=== PATIENT | female | born 1970 | race Caucasian/White ===

== ENCOUNTER 2023-12-13 06:02 | Day surgery (SDC) | payer OTHER, SELFPAY ==
[2023-12-13] VITALS (10 sets, daily range): BP systolic 92–107; BP diastolic 50–74; PULSE 41–67; RESP 16; TEMP 36.2–37.2; O2SAT 100; BMI 24.1
--- NOTE | 2023-12-13 06:17 | EKG12_ITS ---
Test Reason : PREOP Blood Pressure : / mmHG Vent. Rate : 054 BPM Atrial Rate : 054 BPM P-R Int : 142 ms QRS Dur : 078 ms QT Int : 434 ms P-R-T Axes : 075 086 046 degrees QTc Int : 411 ms Sinus bradycardia Otherwise normal ECG No previous ECGs available Confirmed by Bebo Miller ([id number]), video editor GOPAL ANGELES ([id number]) on 12/18/2023 6:11:02 AM Referred By: Marj Rivera Confirmed By:Bebo Miller
[2023-12-13] MEDS: Lactated Ringers 1,000 ML 15 ML IV (06:57)
[2023-12-13 07:16] LABS: Internal QC Validated? YES +Cl - CLEAR BKGD
[2023-12-13 07:17] LABS: Pregnancy, Serum, hCG Quali. NEGATIVE Negative
[2023-12-13 07:19] LABS: Anion Gap 6 (5-15); BUN 18 mg/dL (7-18); BUN/Creat Ratio 21.9 RATIO (10-20); Calcium,Total 8.8 mg/dL (8.5-10.1); Chloride 110 mmol/L (98-107); Creatinine, Serum 0.82 mg/dL (0.55-1.02); EST Glomerular Filtration Rate 78 mL/min (>60); Est Glom Filt Rate - Afr Amer 94 mL/min (>60); Estimated Creatinine Clearance 90.72 ml/min; Glucose 88 mg/dL (74-106); Potassium 3.7 mmol/L (3.5-5.1); Sodium Level 141 mmol/L (136-145)
--- NOTE | 2023-12-13 07:28 | PRE.ANES_ITS ---
ASA Classification* ASA Classification ASA Classification: 2 Assessment & Plan Anesthesia* Anesthesia Assessment Anesthesia Assessment: Discussed sedation and/or anesthesia options, risks, benefits, and alternatives with patient/parents/legal guardian/POA. Questions invited. The patient/parents/legal guardian/POA seems to understand and agrees to proceed with anesthesia plan. Reviewed the physical assessment, medical history, allergy history and patient home medications list prior to surgery/procedure/anesthetic and documented any changes. Performed airway and anesthesia risk assessments. 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 When Was Last Pacemaker Check QUESTION #4 FULL TEXT: You/Your Family Experience fever (hyperthermia) with Anesthesia Last Oral Intake Last Oral intake: Last Oral Intake NPO since 18:30 12/13/23 06:47 Meds taken in AM with sips of water? Meds patient instructed to take am of surgery PONV PONV - fire investigation manager: PONV - fire investigation manager Female Yes 11/28/23 09:55 HX of Motion Sickness Yes 11/28/23 09:55 HX of N/V After Surgery Yes 11/28/23 09:55 Non-Smoker Yes 11/28/23 09:55 Duration of Surgery greater No 11/28/23 09:55 than 60 minutes Number of Risk Factors 4 11/28/23 09:55 PONV Score Severe Risk 11/28/23 09:55 Height & Weight Height & Weight: Anesthesia: Height & Weight Height 5 ft 11 in 12/13/23 06:47 Weight: 78.6 kg 12/13/23 06:47 Body Mass Index (BMI) 24.1 12/13/23 06:47 Respiratory Assessment Respiratory Assessment - fire investigation manager: Respiratory Tract Infection Hx - fire investigation manager Hx Respiratory Tract Infection No 11/28/23 09:55 STOP Sleep Apnea STOP Sleep Apnea - fire investigation manager: STOP Sleep Apnea - fire investigation manager Hx Hypertension No: HYPOTENSION 11/28/23 09:55 Hx Sleep Apnea No 11/28/23 09:55 CPAP BIPAP Do you snore loudly (louder Yes 11/28/23 09:55 than talking or can be heard Do you often feel tired/ No 11/28/23 09:55 fatigued/ sleepy during daytime? Has anyone observed you stop No 11/28/23 09:55 breathing during sleep? STOP Results Negative 11/28/23 09:55 QUESTION #5 FULL TEXT : Do you snore loudly (louder than talking or can be heard through closed doors)? 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 Specify any problems Hx of Preganancy in last 3 No 11/28/23 09:55 Months Nurse Filling Out Transfusion DSCHRIBER 11/28/23 09:55 & Questions: Date: 11/28/23 11/28/23 09:55 Time: 09:57 11/28/23 09:55 Patient unable to answer at this time (ie. confused, unrespo /Reproduction History /Reproductive History - fire investigation manager: /Reproductive Hx- fire investigation manager Hx Now No 11/28/23 09:55 Gestational Age (in weeks): EDC: Hx Hx Para Hx Section SAB No 11/28/23 09:55 Active Medications Active Medications: Current Medications Generic Name Dose Route Start Last Admin Trade Name Freq PRN Reason Stop Dose Admin Lactated Ringer's 1,000 mls @ 15 mls/hr 12/13/23 06:45 12/13/23 06:57 IV 15 mls/hr .Q48H ADDIE Administration Anesthesia Focused Assessment* Temperature: 98.9 F Pulse Rate: 53 Blood Pressure: 106/68 Respiratory Rate: 16 Pulse Ox: 100 Airway Assessment Mouth opens: >3 cm Mallampati Score: II Focused Labs Anesthesia Preop lab: CBC CHEMISTRY Potassium 3.7 mmol/L (3.5-5.1) 12/13/23 06:36 Sodium 141 mmol/L (136-145) 12/13/23 06:36 BUN 18 mg/dL (7-18) 12/13/23 06:36 Creatinine 0.82 mg/dL (0.55-1.02) 12/13/23 06:36 Glucose 88 mg/dL (74-106) 12/13/23 06:36 COAG Review of Systems (Anesthesia) ROS Narrative System reviewed and no additional complaints, except as documented. [facility] Medical History Wears contact lenses Arthritis Anemia Back pain Migraine headache Syncope Non-smoker History of pain when walking Hx of tilt table evaluation History of stress test History of irregular heartbeat Home Medications ?Medication ?Instructions ?Recorded ?Last Taken ?Type fexofenadine 60 mg tablet (Estefany 60 mg PO Q12H PRN PRN allergy 11/28/23 Unknown History Allergy) symptoms norethindrone (contraceptive) 0.35 0.35 mg PO DAILY 11/28/23 Unknown History mg tablet sumatriptan succinate 50 mg tablet 50 mg PO DAILY PRN PRN migraine 11/28/23 Unknown History headache Allergy/AdvReac Type Severity Reaction Status Date / Time adhesive tape AdvReac Intermediate Other Verified 12/13/23 06:41 Barbiturates AdvReac Intermediate Other Verified 12/13/23 06:41 Surgical History History of cardiac catheterization Hx of wisdom tooth extraction Hx of left knee surgery Social History Smoking Status: Never smoker
--- NOTE | 2023-12-13 07:29 | PCM.HP.BLA ---
History and Physical Date of Admission: 12/13/23 Pre-Op History and Physical HPI: The patient is a 53 year old female presenting for pre-operative visit. She is scheduled for laparoscopic bilateral salpingectomy, for desires salpingectomy on 12/13/23. Procedure discussed along with risks, benefits and complications. Other alternatives discussed for management. Consent form signed? Yes. PAST MEDICAL HISTORY PAST MEDICAL HISTORY Diagnosis Date ? Corneal ulcer of right eye ? Migraine with aura ? PMH - PAST MEDICAL HISTORY OF IRREGULAR HEARTBEAT PAST SURGICAL HISTORY PAST SURGICAL HISTORY Procedure Laterality Date ? ARTHROSCOPY KNEE DIAGNOSTIC W/WO SYNOVIAL BX SPX 11/2021 Left Knee ? PAST SURGICAL HISTORY OF MANY HEART TESTS? ? UNSPECIFIED ORAL SURGERY PROCEDURE, BY REPORT WISDOM TEETH REMOVED CURRENT MEDICATIONS Current Outpatient Medications Medication Sig Dispense Refill ? SUMAtriptan (IMITREX) 50 mg tablet TAKE ONE TABLET BY MOUTH AT HEADACHE ONSET, MAY REPEAT ONCE IN 2 HOURS IF NOT EFFECTIVE. ? olopatadine HCl (PATADAY OPHTHALMIC) Use in eyes once daily. ? omega-3/dha/epa/dpa/fish oil (OMEGA-3 2100 ORAL) Take by mouth once daily. ? Norethindrone, Contraceptive, 0.35 mg tablet Take 1 tablet by mouth once daily. 90 tablet 3 ? triamcinolone acetonide (NASACORT NASAL) Use in the nose. ? CALCIUM ORAL Take by mouth. ? fexofenadine (BEAN) 180 mg tablet Take 180 mg by mouth once daily. ? GLUCOSAMINE HCL/CHONDR THOMAS A NA (OSTEO BI-FLEX ORAL) Take by mouth. Move Free, Pt takes 2 tablets daily. ? MULTIVITAMIN ORAL Take by mouth. ? CRANBERRY EXTRACT (CRANBERRY ORAL) Take by mouth. ? LORATADINE ORAL Take by mouth. No current facility-administered medications for this visit. ALLERGIES: Adhesive Tape (Rosins) and Barbituates [Barbiturates] PERSONAL HISTORY: SOCIAL HISTORY Social History Tobacco Use ? Smoking status: Never Passive exposure: Never ? Smokeless tobacco: Never Vaping Use ? Vaping Use: Never used Substance Use Topics ? Alcohol use: No ? Drug use: No FAMILY HISTORY: FAMILY HISTORY FAMILY HISTORY Problem Relation Age of Onset ? Lipids Mother High Cholesterol ? Hypertension Mother ? Thyroid Mother ? Cancer Mother pituitary tumor ? Diabetes Father ? Heart Father ? Arthritis Father ? Hypertension Father ? Cervical Cancer Sister 54 ? Uterine Cancer Sister 54 ? Osteoporosis Maternal Grandmother ? Stroke Maternal Grandmother ? Diabetes Paternal Grandmother ? Arthritis Paternal Grandmother ? Breast Cancer Maternal Aunt 60 ? other (uterine cancer) Maternal Aunt 70 REVIEW OF SYMPTOMS: Negative CP, SOB, dizziness PHYSICAL EXAMINATION: VITALS: Blood pressure 124/72, pulse 68, height 180.3 cm (5' 11), weight 79.8 kg (176 lb), last menstrual period 11/14/2023, SpO2 98%. GENERAL: The patient is well nourished, well hydrated in no acute distress. , The patient is oriented to time, place, and person. NECK: full range of motion WET PREP: Not indicated IMPRESSION: 53yo that desires permanent sterilization PLAN: Laparoscopic bilateral salpingectomy Pt has been counseled on risks/benefits and alternatives of surgery including but not limited to anesthesia, bleeding, infection, injury to pelvic structures including bowel, bladder, ureters and vessels. Pt wishes to proceed with surgery at this time. Pre and post op instructions reviewed I have reviewed and updated past medical and surgical history, medications and allergies Marj Dominguez MD Office Visit on 11/30/2023
--- NOTE | 2023-12-13 07:30 | FALS_PTH ---
PATIENT: STEPHY CID LOC: [facility] [place] U#:[id number] AGE/SX: 53/F ROOM: RE12/13/[address]: Dr. Marj Rivera, MDDOB: 1970 BED: DIS: 12/13/2023 SPEC #: [id number] RECD: 12/13/23 10:06 STATUS: ANGELINA ELVIS #: [id number] KENDALL: 12/13/23 07:[address]: Marj Rivera DEPT: SURGICAL PATHOLOGY RECD BY: Kym Vargas ENTERED: 12/13/23 11:37 SP TYPE: FALL TUBES OTHR DR: Dr. Maurizio Greene MD Tissues: Fallopian tube Procedures: Surgery Specimen Level II HEADER OPERATION: Laparoscopic, salpingectomy PRE-OP DIAGNOSIS: Desires sterilization TISSUE SUBMITTED: Bilateral fallopian tubes MICROSCOPIC DIAGNOSIS Right and left fallopian tubes, bilateral salpingectomies: Two complete cross sections of right and left fallopian tubes with benign paratubal cysts. AM: 12/14/2023 MICROSCOPIC DESCRIPTION Slides are reviewed. GROSS DESCRIPTION Received in fixative is one container labeled with the patient's name and designated bilateral fallopian tubes. The specimen consists of two fallopian tubes with an average length of 8.0 cm and has an average diameter of 0.5 cm. Both fallopian tubes have normal fimbriated ends. No mass lesions are identified. [employer] Clerk sections for each fallopian tube are submitted separately in two cassettes. AM: 12/13/2023 TC:5 CPT: 15785 [id number]
[2023-12-13] MEDS: Bupivacaine 0.5% PF 10 ML VIAL (07:52)
--- NOTE | 2023-12-13 08:09 | PCM.DC ---
Discharge Instructions Diet Discharge Diet: No restrictions Activity May resume sexual activity in: 2 weeks Lifting Restrictions: 20-25 lbs Dressing / Incision Call your doctor if your incision/area has: Continuous Slow Oozing, Sudden Increased Bleeding, Increased Pain/ Swelling, Increased Redness, Foul Smelling Discharge and Swelling at the incision site Call your doctor if you observe: Fever of 101 or Higher, Inability to urinate, Inability to have a bowel movement, Using more than 1 pad per hour and Uncontrolled pain Additional Dressing/Incision Instructions:: You have skin glue over your incision sites, do not pick off. You may shower and let the soap and water run over the incision sites and dab dry. Follow Up Care Please Follow Up With: Marj Rivera MD When: 1-2 weeks post OP if you need an appointment please call [phone] Test Results: Test results from this visit will be discussed in further detail at your follow-up appointment, if applicable. Discharge Plan Admission Attending Provider: Marj Rivera Primary Care Provider: Maurizio Greene Instructions Print Language: Malawian Discharge Orders/Prescriptions Prescriptions: No Action sumatriptan succinate 50 mg tablet 50 mg PO DAILY PRN PRN (Reason: migraine headache) norethindrone (contraceptive) 0.35 mg tablet 0.35 mg PO DAILY fexofenadine [Estefany Allergy] 60 mg tablet 60 mg PO Q12H PRN PRN (Reason: allergy symptoms) Disposition Disposition (needs filled in before D/C Order can be placed): Home, Self Care
--- NOTE | 2023-12-13 08:10 | OP.PCM_ITS ---
Report of Operation Date of Procedure: 12/13/23 Pre-Operative Diagnosis: Desires sterilization Post-Operative Diagnosis: same Surgery/Procedure Performed:: Laparoscopic bilateral salpingectomy Description of Surgical Findings:: Small pedunculated fibroid on posterior aspect of uterus right ovary with small simple appearing cyst. Left ovary appears normal. Surgeon: Marj Rivera application software developer: None Type of Anesthesia: General and Local Special Medications: 0.5% marcaine Specimen's removed: bilateral fallopian tubes Estimated Blood Loss (mL): <5cc Fluids Replaced: 500 Description of Procedure: After informed consent was obtained patient was taken to the operating room she was placed in supine position she was given anesthesia. She was then placed in the [facility] stirrups and she was prepped and draped in normal sterile fashion. Bladder was drained prior to the start of procedure. At this time attention was turned to the vaginal portion where weighted speculum placed at posterior fornix vagina single-tooth tenaculum was used to gently grasp the internal the cervix. uterus was gently sounded to approximately 6 cm. Uterine manipulator was placed without difficulty. Legs then placed in parallel with the abdomen the tenaculum and the weighted speculum were removed. 2 towel clamps were placed at level of umbilicus. Marcaine was injected infraumbilical and a small incision was made. The 5 mm trocar was placed under direct visualization. CO2 gas was used to insufflate the intra-abdominal cavity. Upon inspection no gross abnormalities appreciated- the uterus tubes and ovaries appeared to be normal. At this time then the LLQ and RLQ ports were placed First Marcaine was injected and small incision was made a knife and the 5 mm trocars were placed. At this time then tubes were traced back to the fimbriated ends. Enseal was used to coagulate and ligate along mesosalpinx bilaterally until tubes removed completely. Good hemostasis was appreciated. At this time procedure was deemed complete successful. The gas was desufflated on from the intra-abdominal cavity. The trochars were removed. Skin was closed using 4-0 Monocryl in a subcutaneous fashion. Dermabond glue was placed. Instrument lap and needle counts were correct ?2. The uterine manipulator was removed. Vaginal sweep was performed it was negative. There were no complications anticipated normal postoperative course for this patient. Grafts/Implants Used: none Procedure Start Time: 07:52 Procedure Stop Time: 08:09 Complications none Admit VTE Documentation VTE Present on Admission: Yes VTE Mechan Device Prophylaxis: SCD's VTE Pharm Prophylaxis ordered?: No Reason prophylaxis not ordered:: Procedure Not Indicated
--- NOTE | 2023-12-13 08:22 | PCM.POST.ANE ---
Anesthesia: Postop Eval I Current Vital Signs Temperature: 97.2 F Pulse Rate: 67 Blood Pressure: 92/74 Respiratory Rate: 16 Pulse Ox: 100 Oxygen Delivery Method: Room Air Assessment Airway patent: Yes Spontaneous unlabored respirations: Yes Mental status: Awake and Calm nausea: No Vomiting: No Anesthesia Complication: No Fluid Hydration Crystalloid volume administer (ml): 500 Total IV fluid infused: 500 Progress Note Anesthesia document: Postop Eval 1 completed: Yes
--- NOTE | 2023-12-13 08:54 | POSTOPAN2_ITS ---
Anesthesia Postop Eval I Sum Postop Eval Completion status Anesthesia document: Postop Eval 1 completed: Yes Anesthesia Postop Eval I Summary Anesthesia Postop Eval I Summary: Anesthesia Postop Eval I: Assessment Summary Airway patent Yes 12/13/23 08:31 SCIENTIFIC ARTIST.GDOTT Spontaneous unlabored Yes 12/13/23 08:31 SCIENTIFIC ARTIST.GDOTT respirations Mental status Awake,Calm 12/13/23 08:31 SCIENTIFIC ARTIST.GDOTT nausea No 12/13/23 08:31 SCIENTIFIC ARTIST.GDOTT Vomiting No 12/13/23 08:31 SCIENTIFIC ARTIST.GDOTT Anesthesia Postop Eval I: Fluid Summary Crystalloid volume administer 500 12/13/23 08:31 SCIENTIFIC ARTIST.GDOTT (ml) Colloids volume administered ( ml) Blood Product volume administered (ml) Total IV fluid infused 500 12/13/23 08:31 SCIENTIFIC ARTIST.GDOTT Anesthesia Postop Eval I: Summary Notes Anesthesia Complication No 12/13/23 08:31 SCIENTIFIC ARTIST.GDOTT Anesthesia Complication Comment: Post-operative progress note Anesthesia: Postop Eval II Evaluation Mental status: Awake Pain Level: 0 nausea: No Vomiting: No Complications Anesthesia Complication: No
--- NOTE | 2023-12-13 08:54 | PCM.POSTANE2 ---
Anesthesia Postop Eval I Sum Postop Eval Completion status Anesthesia document: Postop Eval 1 completed: Yes Anesthesia Postop Eval I Summary Anesthesia Postop Eval I Summary: Anesthesia Postop Eval I: Assessment Summary Airway patent Yes 12/13/23 08:31 WEBMETHODS CONSULTANT.GDOTT Spontaneous unlabored Yes 12/13/23 08:31 WEBMETHODS CONSULTANT.GDOTT respirations Mental status Awake,Calm 12/13/23 08:31 WEBMETHODS CONSULTANT.GDOTT nausea No 12/13/23 08:31 WEBMETHODS CONSULTANT.GDOTT Vomiting No 12/13/23 08:31 WEBMETHODS CONSULTANT.GDOTT Anesthesia Postop Eval I: Fluid Summary Crystalloid volume administer 500 12/13/23 08:31 WEBMETHODS CONSULTANT.GDOTT (ml) Colloids volume administered ( ml) Blood Product volume administered (ml) Total IV fluid infused 500 12/13/23 08:31 WEBMETHODS CONSULTANT.GDOTT Anesthesia Postop Eval I: Summary Notes Anesthesia Complication No 12/13/23 08:31 WEBMETHODS CONSULTANT.GDOTT Anesthesia Complication Comment: Post-operative progress note Anesthesia: Postop Eval II Evaluation Mental status: Awake Pain Level: 0 nausea: No Vomiting: No Complications Anesthesia Complication: No
== END 2023-12-13 09:45 | disposition home or self-care (01) ==
LOC: SDC 06:06 → AC 06:06
PROVIDERS: Anesthesiology; PCP Family Medicine; Referring Provider Obstetrics & Gynecology; Visit Provider Obstetrics & Gynecology
PROC: (CPT 58661; principal; 2023-12-13 07:15)
DX: Z30.2 Encounter for sterilization (principal); N83.8 Other noninflammatory disorders of ovary, fallopian tube and broad ligament
CPT/HCPCS: 58661; 00840; 80048; 84703; 88302; 93005; J7120; C1760; J2405